=== PATIENT | male | born 1975 | race Caucasian/White ===

== ENCOUNTER 2016-08-04 05:15 | Emergency (ER) | payer OTHER ==
[~2016-08-04 05:15] MED LIST: AUGMENTIN 875875 MG PO; CIPRO 500MG TA500 MG PO; IBUPROFEN800 M1 PO; KETOROLAC TROME10 M1 PO; PERCOCET 5-3251 EACH PO; TORADOL10 MG PO; ZOFRAN4 M1 SL; ZOFRAN4 M2 PO
[2016-08-04 05:26] VITALS: BP 118/73
--- NOTE | 2016-08-04 05:36 | ED INFLUENZA/URI COMPLAINT ---
History of Present Illness General Chief Complaint: Upper Respiratory Sx/Fever Stated Complaint: COUGH FOR FEW DAYS,CHILLS Source: patient Exam Limitations: no limitations Vital Signs & Intake/Output Vital Signs & Intake/Output Vital Signs Date Time Temp Pulse Resp B/P Pulse O2 O2 Flow FiO2 Ox Delivery Rate 08/04 0526 100.6 120 20 118/73 95 Room Air Allergies Coded Allergies: NO KNOWN ALLERGIES (08/18/15) Reconcile Medications Amoxicillin/Potassium Clav (Augmentin 875-125 Tablet) 875 MG-125 MG TABLET 1 TAB PO BID bronchitis Benzonatate (Tessalon Perle) 100 MG CAPSULE 1 CAP PO TID PRN cough Ibuprofen 800 MG TABLET 1 TAB PO TID PRN pain Ibuprofen 800 MG TABLET 1 TAB PO TID PRN fever, body aches Ketorolac Tromethamine 10 MG TABLET 1 TAB PO TID PRN PAIN Ondansetron HCl (Zofran) 4 MG TABLET 1 TAB PO Q6-8P PRN PAIN Oxycodone HCl/Acetaminophen (Percocet 5-325 MG Tablet) 1 EACH TABLET 1 TAB PO Q4-6 PRN PAIN Triage Note: COUGHING STARTED A FEW DAYS AGO, NOW HE COUGHS TILL HE CHOKES, NO FEVERS Triage Nurses Notes Reviewed? yes Onset: Gradual Duration: day(s):, waxing and waning Timing: recent history Severity: moderate Prior Episodes/Possible Cause: occassional episodes Modifying Factors: Improves With: rest. Associated Symptoms: cough, sinus infection, sore throat HPI: 32-year-old gentleman in prior good health presents with 3-4 days of cough sinus congestion body aches low-grade temperatures. He states that he has not been feeling better and that the sputum has turned yellow. He has no shortness of breath chest pain vomiting or diarrhea. He is otherwise well. Past History Travel History Traveled to [place] past 21 day No Medical History Any Pertinent Medical History? 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 No Review of Systems Review of Systems Constitutional: Reports: no symptoms. EENTM: Reports: no symptoms. Respiratory: Reports: no symptoms. Cardiovascular: Reports: no symptoms. GI: Reports: no symptoms. Genitourinary: Reports: no symptoms. Musculoskeletal: Reports: no symptoms. Skin: Reports: no symptoms. Neurological/Psychological: Reports: no symptoms. Hematologic/Endocrine: Reports: no symptoms. Immunologic/Allergic: Reports: no symptoms. All Other Systems: Reviewed and Negative Physical Exam Physical Exam General Appearance: well developed/nourished, mild distress Head: atraumatic, normal appearance Eyes: Bilateral: normal appearance. Ears, Nose, Throat: pharynx normal, nasal congestion, nasal drainage Neck: normal inspection, supple, full range of motion Respiratory: normal breath sounds, chest non-tender, no respiratory distress, quiet respiration, lungs clear Cardiovascular: regular rate/rhythm Gastrointestinal: normal bowel sounds, soft, non-tender, no organomegaly Back: normal inspection, normal range of motion Extremities: normal inspection, normal capillary refill, normal range of motion Neurologic/Psych: no motor/sensory deficits, awake, alert, oriented x 3 Skin: intact, normal color, warm/dry Core Measures Severe Sepsis Present: No Septic Shock Present: No Progress Differential Diagnosis: sinusitis, bronchitis versus other Plan of Care: Current Medications Sig/Sean Start time Last Medication Dose Stop Time Status Admin Amoxicillin/ 1,000 MG ONCE ONE 08/04 544 UNVr Clavulanate Potassium 08/04 545 (Augmentin) Guaifenesin/Codeine 10 ML ONCE ONE 08/04 544 UNVr Phosphate 08/04 545 (Robitussin AC) Ibuprofen 800 MG ONCE ONE 08/04 544 UNVr (Motrin) 08/04 545 Initial ED EKG: none Departure Departure Disposition: HOME OR SELF CARE Condition: Stable Clinical Impression Primary Impression: Bronchitis Referrals: VIPUL CASH MD (PCP/Family) Departure Forms: Customer Survey General Discharge Information Prescriptions: Current Visit Scripts Amoxicillin/Potassium Clav (Augmentin 875-125 Tablet) 1 TAB PO BID #20 TAB Benzonatate (Tessalon Perle) 1 CAP PO TID PRN cough #30 CAP Ibuprofen 1 TAB PO TID PRN fever, body aches #60 TAB Ref 1 Comments Patient was stable vitals in the emergency department. He is otherwise healthy. I gave him a prescription for Augmentin with instructions to return to emergency department if he is not feeling better.
[2016-08-04] MEDS ORDERED: IBUPROFEN800 M1 PO (05:45)
[2016-08-04] MEDS ORDERED: AUGMENTIN 875-1 EACH PO (05:45)
[2016-08-04] MEDS ORDERED: TESSALON PERLE100 M1 PO (05:45)
== END 2016-08-04 05:59 ==
LOC: ERH 05:15
DX: J40 Bronchitis, not specified as acute or chronic (principal)
CPT/HCPCS: J3490

== ENCOUNTER 2017-12-15 21:29 | Emergency (ER) | payer OTHER ==
[~2017-12-15 21:29] MED LIST changes: +AUGMENTIN 875-1 EACH PO; +TESSALON PERLE100 M1 PO
--- NOTE | 2017-12-15 23:07 | ED GENERAL ADULT ---
History of Present Illness General Chief Complaint: General Adult Stated Complaint: SUDDEN ONSET OF SHAKING, DIFF BREATHING, CP Source: patient, family Exam Limitations: language barrier, translation via family member Vital Signs & Intake/Output Vital Signs & Intake/Output Vital Signs Date Time Temp Pulse Resp B/P B/P Pulse O2 O2 Flow FiO2 Mean Ox Delivery Rate 12/157 97.4 94 20 125/76 100 Room Air Allergies Coded Allergies: NO KNOWN ALLERGIES (08/18/15) Reconcile Medications Amoxicillin/Potassium Clav (Augmentin 875-125 Tablet) 875 MG-125 MG TABLET 1 TAB PO BID bronchitis Benzonatate (Tessalon Perle) 100 MG CAPSULE 1 CAP PO TID PRN cough Ibuprofen 800 MG TABLET 1 TAB PO TID PRN pain Ibuprofen 800 MG TABLET 1 TAB PO TID PRN fever, body aches Ketorolac Tromethamine 10 MG TABLET 1 TAB PO TID PRN PAIN Ondansetron HCl (Zofran) 4 MG TABLET 1 TAB PO Q6-8P PRN PAIN Oxycodone HCl/Acetaminophen (Percocet 5-325 MG Tablet) 1 EACH TABLET 1 TAB PO Q4-6 PRN PAIN Triage Note: PT REPORTS HE WAS VISITING A FAMILY MEMBER IN HOSPITAL AND THE ROOM WAS COLD SO HE WENT OUTSIDE BUT REMAINED COLD AND BEGAN SHAKING UNCONTROLLABLY. PTS SKIN NOTED RED, STATES HE WAS OUTSIDE MOWING THE LAWN TODAY. STATES, "HAVE SOME CHEST PAIN." Triage Nurses Notes Reviewed? yes Onset: Gradual Duration: minute(s): Timing: recent history Injury Environment: home Severity: mild, moderate Modifying Factors: Improves With: rest. Associated Symptoms: "shaking" HPI: 41 yo gentleman presents with episode of shaking. He was visiting a family member at this hospital. When he was getting into his car after the visit, he had an episode where he was "shaking" and had "chills... as if going from the cold air to the warm was bothering him." The event lasted several minutes and then self-resolved. He is presently feeling well and has no other concerns. Past History Travel History Traveled to [place] past 21 day No Medical History Any Pertinent Medical History? 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 No Review of Systems Review of Systems Constitutional: Reports: no symptoms. EENTM: Reports: no symptoms. Respiratory: Reports: no symptoms. Cardiovascular: Reports: no symptoms. GI: Reports: no symptoms. Genitourinary: Reports: no symptoms. Musculoskeletal: Reports: no symptoms. Skin: Reports: no symptoms. Neurological/Psychological: Reports: no symptoms. Hematologic/Endocrine: Reports: no symptoms. Immunologic/Allergic: Reports: no symptoms. All Other Systems: Reviewed and Negative Physical Exam Physical Exam General Appearance: well developed/nourished, no apparent distress Head: atraumatic, normal appearance Eyes: Bilateral: normal appearance, PERRL, EOMI. Ears, Nose, Throat: normal pharynx, normal ENT inspection Neck: normal inspection, supple, full range of motion Respiratory: normal breath sounds, chest non-tender, no respiratory distress, quiet respiration, lungs clear Cardiovascular: regular rate/rhythm Gastrointestinal: normal bowel sounds, soft, non-tender, no organomegaly Back: normal inspection Extremities: normal inspection Neurologic/Psych: no motor/sensory deficits, awake, alert, oriented x 3 Reflexes: 1+: bicep (R), bicep (L), knee (R), knee (L). Skin: sunburn on arms bilaterally, no blisters Core Measures ACS in differential dx? No CVA/TIA Diagnosis: No Sepsis Present: No Sepsis Focused Exam Completed? No Progress Differential Diagnoses I considered the following diagnoses in my evaluation of the patient: panic vs musculoskeletal vs other. Plan of Care: Orders Procedure Date/time Status TROPONIN LEVEL 12/15 2306 Complete COMPREHENSIVE METABOLIC PANEL 12/15 2306 Complete CBC WITHOUT DIFFERENTIAL 12/15 2305 Complete EKG 12/15 2129 Active Laboratory Tests 12/15/17 2345: Anion Gap 11, Estimated GFR > 60, BUN/Creatinine Ratio 28.8 H, Glucose 96, Calcium 9.1, Total Bilirubin 1.0, AST 22, ALT 30, Alkaline Phosphatase 49, Troponin I < 0.01, Total Protein 6.7, Albumin 4.0, Globulin 2.7, Albumin/ Globulin Ratio 1.5, CBC w Diff NO MAN DIFF REQ, RBC 4.47 L, MCV 88.8, MCH 31.4 H, MCHC 35.3, RDW 13.0, MPV 6.9 L, Gran % 48.0, Lymphocytes % 43.2, Monocytes % 7.6, Eosinophils % 0.7, Basophils % 0.5, Absolute Granulocytes 1.4, Absolute Lymphocytes 1.3, Absolute Monocytes 0.2, Absolute Eosinophils 0, Absolute Basophils 0 Initial ED EKG: normal axis, normal intervals, normal p-waves, normal QRS complex, normal sinus rhythm Departure Departure Disposition: HOME OR SELF CARE Condition: Stable Clinical Impression Primary Impression: Lightheadedness Secondary Impressions: Dizziness Referrals: Ana Laura Redmond MD (PCP/Family) Departure Forms: Customer Survey General Discharge Information Comments 12/16/17, 1"25AM.... pt has similar episode in 2016, was cleared by cardiology... evaluation benign in ED... I discussed repeating the trop/ekg... pt declines, stating that he is feeling well at present. He will return if symptoms recur. 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 Critical Care Note Critical Care Note Critical Care Time: non-applicable
[2017-12-16 00:03] LABS: ABSOLUTE BASOPHIL COUNT 0 /CUMM (0.0-0.2); ABSOLUTE EOSINOPHIL COUNT 0 /CUMM (0.0-0.7); ABSOLUTE GRANULOCYTE CT 1.4 /CUMM (1.4-6.5); ABSOLUTE LYMPH COUNT 1.3 /CUMM (1.2-3.4); ABSOLUTE MONOCYTE COUNT 0.2 /CUMM (0.10-0.60); BASOPHIL % 0.5 % (0.0-2.0); EOSINOPHIL % 0.7 % (0-5); HEMATOCRIT 39.7 % (42-52); MEAN CORPUSCULAR HGB 31.4 PG (27.0-31.0); MEAN CORPUSCULAR HGB CONC 35.3 G/DL (33.0-37.0); MEAN CORPUSCULAR VOLUME 88.8 FL (80.0-94.0); MEAN PLATELET VOLUME 6.9 FL (7.4-10.4); PLATELET COUNT 144 /CUMM (130-400); RED BLOOD CELL CT 4.47 /CUMM (4.70-6.10)
[2017-12-16 01:40] VITALS: BP 100/53
== END 2017-12-16 01:41 ==
LOC: ERH 21:29
PROVIDERS: Pediatrics
DX: R42 Dizziness and giddiness (principal)
CPT/HCPCS: 93005; 93010; 96360; 96361